=== PATIENT | female | born 1975 | race Two or more races ===

== ENCOUNTER 2017-07-03 10:28 | Emergency (ER) | payer OTHER ==
[~2017-07-03] VITALS: Ht 167.6 cm; Wt 115.7 kg
[2017-07-03 11:00] VITALS: BP 149/75
== END 2017-07-03 11:26 | disposition home or self-care (01) ==
LOC: ER 10:28
DX: S00.03XA Contusion of scalp, initial encounter (principal); W19.XXXA Unspecified fall, initial encounter; Y93.89 Activity, other specified; Y99.8 Other external cause status; Y92.89 Other specified places as the place of occurrence of the external cause